=== PATIENT | female | born 1975 | race Caucasian/White ===

== ENCOUNTER 2020-07-02 21:18 | Observation (INO) ==
[2020-07-02 21:56] LABS: Bacteria,Urine Few per hpf (None-Few); Bilirubin,Urine Negative (Negative); Blood,Urine Negative (Negative); Clarity,Urine Clear (Clear); Color,Urine Yellow (Yellow); Glucose,Urine (UA) Normal (Normal); Ketones,Urine Trace mg/dL (Negative); Leukocyte Esterase,Urine Trace (Negative); Mucus,Urine Few per lpf (None-Few); Nitrite,Urine Negative (Negative); PH,Urine 6.5 pH Units (5.0-8.0); Protein,Urine 70 mg/dL (Neg-Trace); Specific Gravity,Urine > 1.030 (1.010-1.025); Squamous Epithelial Cell,Urine Moderate per hpf (None-Few)
[2020-07-02] MEDS ORDERED: *HR* HYDROmorphone (PF) 1 MG/ML SYRINGE IVP ONE (22:13)
[2020-07-02] MEDS ORDERED: Ondansetron 4 MG/2 ML VIAL IVP ONE (22:13)
[2020-07-02] MEDS ORDERED: 0.9 % Sodium Chloride 1,000 ML IV ONE (22:14)
[2020-07-02 22:29] LABS: Basophils # 0.1 K/mcL (0.0-0.2); Basophils % 0.4 %; Eosinophils # 0.1 K/mcL (0.0-0.6); Eosinophils % 0.4 %; Hemoglobin 14.8 g/dL (11.5-15.4); Immature Granulocytes % 0.7 % (0-4); Lymphocytes # 3.3 K/mcL (0.6-4.6); Lymphocytes % 14.9 %; Mean Corpuscular HGB Conc 33.6 g/dL (31.6-35.5); Mean Corpuscular Hemoglobin 29.6 pg (28.0-33.3); Monocytes # 1.4 K/mcL (0.0-1.3); Monocytes % 6.5 %; Neutrophils # 17.1 K/mcL (1.6-8.9); Platelet Count 314 K/mcL (140-400); Red Cell Distribution Width 12.9 % (11.5-14.5); Segmented Neutrophils % 77.1 %; White Blood Count 22.2 K/mcL (4.3-11.1)
[2020-07-02 22:47] LABS: Alanine Aminotransferase 11 Units/L (7-52); Albumin 4.6 g/dL (3.5-5.7); Albumin/Globulin Ratio 1.8 (1.1-2.2); Alkaline Phosphatase 70 Units/L (34-104); Aspartate Amino Transferase 10 Units/L (13-39); BUN/Creatinine Ratio 13 (6-26); Bilirubin,Indirect 0.4 mg/dL (0.0-1.0); Bilirubin,Total 0.4 mg/dL (0.3-1.0); Blood Urea Nitrogen 12 mg/dL (6-20); Calcium 9.7 mg/dL (8.6-10.3); Carbon Dioxide 27 mEq/L (23-29); Chloride 101 mEq/L (98-107); Globulin 2.5 g/dL (2.4-3.5); Glucose 116 mg/dL (70-105); Lipase 22 Units/L (11-82); Osmolality,Calculated 287 (280-300); Potassium 3.3 mEq/L (3.5-5.1); Sodium 138 mEq/L (136-145); Total Protein 7.1 g/dL (6.4-8.9); eGFR For African Americans > 60 (> 60); eGFR For Non-African Americans > 60 (> 60)
[2020-07-03] MEDS ORDERED: *HR* HYDROmorphone (PF) 1 MG/ML SYRINGE IVP ONE ×2 (00:03→02:54)
[2020-07-03] MEDS ORDERED: 0.9 % Sodium Chloride 1,000 ML IV ONE (00:26)
[2020-07-03] MEDS ORDERED: Piperacillin/Tazobactam 3.375 GM in 0.9 % Sodium Chloride Mini Bag 100 ML IVPB ONE (00:29)
[2020-07-03] MEDS ORDERED: Ondansetron 4 MG/2 ML VIAL IVP PRN ×4 (03:20→13:56)
[2020-07-03] MEDS ORDERED: *HR* OxyCODONE/APAP 5/325 TABLET PO PRN (03:20)
[2020-07-03] MEDS: 0.9 % Sodium Chloride 1,000 ML IVC SCH ×4 (04:32→23:07)
[2020-07-03] MEDS ORDERED: Piperacillin/Tazobactam 3.375 GM in 0.9 % Sodium Chloride Mini Bag 100 ML IVPB SCH (08:00)
[2020-07-03] MEDS ORDERED: Pantoprazole 40 MG VIAL IVP SCH (09:00)
[2020-07-03] MEDS ORDERED: *HR* Labetalol 20 MG/4 ML SYRINGE IVP PRN ×2 (11:09→13:56)
[2020-07-03] MEDS ORDERED: *HR* HYDROmorphone (PF) 1 MG/ML SYRINGE IVP PRN (11:09)
[2020-07-03] MEDS ORDERED: *HR* Midazolam HCl 2 MG/2 ML VIAL ONE (11:19)
[2020-07-03] MEDS ORDERED: *HR* Propofol 200 MG/20 ML VIAL IVP ONE (11:19)
[2020-07-03] MEDS ORDERED: *HR* FentaNYL (PF) 100 MCG/2 ML VIAL ONE ×2 (11:19→12:12)
[2020-07-03] MEDS ORDERED: *HR* Rocuronium Bromide 50 MG/5 ML VIAL ONE (11:21)
[2020-07-03] MEDS ORDERED: Lidocaine HCL 4 ML Topical Solution (Laryng-O-Jet Kit Sterile Pak) TP ONE (11:21)
[2020-07-03] MEDS ORDERED: Lidocaine -MPF 2% 2 ML VIAL ONE (11:21)
[2020-07-03] MEDS ORDERED: Acetaminophen IV 1,000 MG/100 ML BAG IVPB ONE (11:37)
[2020-07-03] MEDS ORDERED: *HR* Labetalol 20 MG/4 ML SYRINGE IVP ONE (12:13)
[2020-07-03] MEDS ORDERED: Ketorolac 30 MG/ML VIAL ONE (12:29)
[2020-07-03] MEDS ORDERED: *HR* HYDROmorphone PF 0.5 MG/0.5 ML SYRINGE IVP PRN (13:56)
[2020-07-03] MEDS: Piperacillin/Tazobactam 3.375 GM in 0.9 % Sodium Chloride Mini Bag 100 ML IVPB SCH ×2 (14:49→23:07)
[2020-07-04] MEDS: *HR* OxyCODONE/APAP 5/325 TABLET PO PRN ×2 (01:21→09:11)
[2020-07-04] MEDS ORDERED: Pantoprazole 40 MG VIAL IVP SCH (06:30)
[2020-07-04] MEDS: 0.9 % Sodium Chloride 1,000 ML IVC SCH (06:42)
[2020-07-04 06:47] VITALS: BP 146/84
[2020-07-04] MEDS: Piperacillin/Tazobactam 3.375 GM in 0.9 % Sodium Chloride Mini Bag 100 ML IVPB SCH (07:53)
== END 2020-07-04 09:49 | disposition home or self-care (01) ==
LOC: 3BNU 21:18 → EMEROOARM 21:18 → 3BNU 07-03 03:12
PROVIDERS: ADMIT Surgery; ATTEND Surgery